=== PATIENT | male | born 1990 ===

== ENCOUNTER 2020-08-08 00:40 | Emergency (ER) | payer OTHER ==
[2020-08-08] MEDS ORDERED: Diphtheria,Pertussis(Acell),Tetanus Vaccine 0.5 ML Syringe IM ONE (00:54)
[2020-08-08] MEDS ORDERED: Bacitracin Oint 1 GM U/D Packet TOP ONE (00:55)
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
== END 2020-08-08 01:00 | disposition home or self-care (01) ==
LOC: LL.ED 00:40
DX: T59.891A Toxic effect of other specified gases, fumes and vapors, accidental (unintentional), initial encounter (principal); T23.431A Corrosion of unspecified degree of multiple right fingers (nail), not including thumb, initial encounter; Z23 Encounter for immunization
CPT/HCPCS: 16000; 90471; 90715; 99283